=== PATIENT | male | born 1980 ===

== ENCOUNTER 2016-11-14 09:30 | Day surgery (SDC) | payer OTHER ==
[2016-11-09 13:01] VITALS: BMI 25.8
[2016-11-14] MEDS ORDERED: ePHEDrine 50 mg/ml Inj ONE (11:26)
[2016-11-14] MEDS ORDERED: Propofol 10 mg/ml Inj (20 ML) ONE (11:26)
[2016-11-14] MEDS ORDERED: Lidocaine Hydrochloride 5 ML INJ ONE (11:26)
[2016-11-14] MEDS ORDERED: Midazolam 2 MG/2 ML VIAL ONE (11:26)
[2016-11-14] MEDS ORDERED: Lactated Ringer's 1,000 ML IV ONE (11:30)
[2016-11-14] MEDS ORDERED: ceFAZolin IV 1 gm in Dextrose 1 GM/50 ML BAG IVPB ONE (11:38)
[2016-11-14] MEDS ORDERED: Bupivacaine/Epi 0.25%-1:200,000 10 ml PF inj IJ ONE (11:38)
[2016-11-14] MEDS ORDERED: Absorbable Gelatin Sponge Size 12-7 ONE (11:39)
[2016-11-14] MEDS ORDERED: Succinylcholine Chloride 20 mg/ml Syr (5 ml) IV ONE (11:45)
[2016-11-14] MEDS ORDERED: Rocuronium 10 mg/ml (5 ml) ONE (11:45)
[2016-11-14] MEDS ORDERED: Neostigmine Methylsulfate 3mg/3ml Syringe IV ONE (12:23)
[2016-11-14] MEDS ORDERED: HYDROmorphone 0.5 mg/0.5 ml ISec IVP PRN ×2 (12:42→15:16)
[2016-11-14] MEDS ORDERED: Oxycodone/Acetaminophen 5/325 mg Tab PO PRN (13:14)
--- NOTE | 2016-11-14 15:20 | OP ---
PROCEDURE DATE: 11/14/2016 PREOPERATIVE DIAGNOSIS: Grade IV complex hemorrhoids. POSTOPERATIVE DIAGNOSIS: Grade IV complex hemorrhoids. PROCEDURE PERFORMED: Complex hemorrhoidectomy. SURGEON: Benji Guo MD ANESTHESIA: General. ESTIMATED BLOOD LOSS: 50 mL. POSTOPERATIVE CONDITION: Stable. INDICATIONS FOR SURGERY: This is a 36-year-old male with longstanding hemorrhoids and hemorrhoidal p rolapse who now presents for a definitive hemorrhoidectomy. GROSS FINDINGS: There were hemorrhoids in the left lateral and right anterior position, grade IV, wi th prolapse. Both were excised via a formal hemorrhoidectomy technique. PROCEDURE: The patient taken to the operating room and placed in the prone jackknife position with t he buttocks taped open. An anoscopy was performed with the above findings. The left lateral hemorrh oid was grasped with a jeannine clamp, ligated at its base with a heavy Monocryl suture. A generous e lliptical incision was made out onto the anal skin and the hemorrhoid was completely excised. Bleedi ng was heavy, controlled using the Bovie. A larger rectal blood vessel was repaired. Flaps were squires sed and an adjacent tissue transfer closure was performed. Next, in a similar fashion, the right ant erior hemorrhoid was removed. At the conclusion of procedure, all the hemorrhoid incisions were hemo static. The anal canal was packed with Gelfoam and an anal block of 0.25 Marcaine was placed. The p atient tolerated procedure well, returned to recovery room in stable condition. Benji Guo MD cc: [id number] TT: 11/14/2016 15:19:33 sd
[2016-11-14 15:24] VITALS: BP 110/70; PULSE 63; RESP 18; TEMP 97; O2SAT 100
== END 2016-11-14 16:02 | disposition home or self-care (01) ==
LOC: C.SDS 09:30
PROVIDERS: ATTEND Surgery
DX: K64.3 Fourth degree hemorrhoids (principal)
CPT/HCPCS: 46260; 88304; J0690; J2250; J2704; J2710; J3010; J7120